=== PATIENT | female | born 1980 | race Caucasian/White ===

== ENCOUNTER → 2016-08-15 | Outpatient (CLI) | payer OTHER ==
[~2016-08-15] MED LIST: CONRAY-43 43% 50ML VIAL (Q9960) As Ordered ONE; LIDOCAINE 1% MDV 20ML VIAL As Ordered ONE; TRIAMCINOLONE ACETONIDE SUSP 40 MG/ML VIAL (J3301) As Ordered ONE
--- NOTE | 2016-08-15 16:03 | REP ---
Right hip injection The procedure was performed under the direct supervision of Dr. Orozco. The benefits and risks including but not limited to pain infection and bleeding and anaphylaxis were explained to the patient and informed consent was obtained. The right femoral neck was localized using fluoroscopic guidance. The skin was prepped and draped in a sterile fashion. 1% lidocaine was used as a local anesthetic. Using fluoroscopic guidance a 22-gauge spinal needle was inserted and advanced to the femoral neck. 0.5 ml of Conray 43 was injected to verify placement. 10 ml of a solution containing 9 ml of 1% Xylocaine and 1 ml of Kenalog 40 mg was injected. The needle was then removed. The patient tolerated the procedure well and there were no immediate complications. 2 seconds of fluoro time was utilized for this procedure. Reviewed by ALEAH Hernandez 08/15/2016 03:26 PSigned by Ajit Orozco MD 08/15/2016 03:56 P
== END ==
LOC: M RADPRO 09:29
PROVIDERS: ATTEND Orthopaedic Surgery
DX: M25.859 Other specified joint disorders, unspecified hip (principal)
CPT/HCPCS: 20611; 77002; J3301; Q9960

== ENCOUNTER → 2016-09-12 | Outpatient (CLI) | payer OTHER ==
--- NOTE | 2016-09-12 20:09 | REP ---
Left hip injection The procedure was performed under the direct supervision of Dr. Nails. The benefits and risks including but not limited to pain infection and bleeding and anaphylaxis were explained to the patient and informed consent was obtained. The left femoral neck was localized using fluoroscopic guidance. The skin was prepped and draped in a sterile fashion. 1% lidocaine was used as a local anesthetic. Using fluoroscopic guidance a 22-gauge spinal needle was inserted and advanced to the femoral neck. 0.5 ml of Conray 43 was injected to verify placement. 10 ml of a solution containing 9 ml of 1% Xylocaine and 1 ml of Kenalog 40 mg was injected. The needle was then removed. The patient tolerated the procedure well and there were no immediate complications. 2 seconds of fluoro time was utilized for this procedure. Reviewed by ALEAH Hernandez 09/12/2016 01:55 PSigned by Joshua Nails MD 09/12/2016 07:51 P
== END ==
LOC: M RADPRO 09:58
PROVIDERS: ATTEND Orthopaedic Surgery
DX: M25.552 Pain in left hip (principal)
CPT/HCPCS: 20611; 77002; J3301; Q9960

== ENCOUNTER 2020-04-01 15:31 | Inpatient (IN) | payer MEDICAID, OTHER, SELFPAY ==
[~2020-04-01] VITALS: Ht 182.9 cm; Wt 64.7 kg
[2020-04-01] MEDS ORDERED: DULO1CAP4 PO (17:27)
[2020-04-01] MEDS ORDERED: TRAM50TA2 PO (17:27)
[2020-04-01 17:59] LABS: HEMATOCRIT 39.9 % (36.0-47.0); MEAN CORPUSCULAR HEMOGLOBIN 31.2 pg (27.0-33.0); MEAN CORPUSCULAR HGB CONC 32.6 g/dl (32.0-36.5); MEAN CORPUSCULAR VOLUME 95.7 fl (80.0-96.0); PLATELET COUNT, AUTOMATED 198 10^3/uL (150-450); RED BLOOD COUNT 4.17 10^6/uL (4.00-5.40); WHITE BLOOD COUNT 7.3 10^3/uL (4.0-10.0)
[2020-04-01 18:30] LABS: AMPHETAMINES LEVEL URINE NEGATIVE (NEGATIVE); BARBITURATES URINE NEGATIVE (NEGATIVE); BENZODIAZEPINES URINE NEGATIVE (NEGATIVE); CANNABINOIDS URINE POSITIVE (NEGATIVE); COCAINE METABOLITE URINE NEGATIVE (NEGATIVE); METHADONE URINE NEGATIVE (NEGATIVE); OPIATES URINE NEGATIVE (NEGATIVE); PHENCYCLIDINE URINE NEGATIVE (NEGATIVE)
[2020-04-01 18:31] LABS: HCG, SERUM QUALITATIVE NEGATIVE (NEGATIVE)
[2020-04-01 18:41] LABS: BLOOD UREA NITROGEN 14 MG/DL (7-18); GLUCOSE, FASTING 83 MG/DL (70-100)
[2020-04-01 18:42] LABS: ACETAMINOPHEN LEVEL < 2.0 UG/ML (10.0-30.0); ALBUMIN 4.2 GM/DL (3.2-5.2); ALT/SGPT 12 U/L (12-78); BILIRUBIN,DIRECT 0.3 MG/DL (0.0-0.2); BILIRUBIN,TOTAL 1.4 MG/DL (0.2-1.0); CALCIUM LEVEL 9.1 MG/DL (8.5-10.1); CARBON DIOXIDE LEVEL 28 MEQ/L (21-32); CHLORIDE LEVEL 106 MEQ/L (98-107); ETHYL ALCOHOL (ETHANOL) < 0.003 % (0.000-0.010); GLOMERULAR FILTRATION RATE > 60.0 (>60); POTASSIUM SERUM 3.5 MEQ/L (3.5-5.1); SALICYLATE LEVEL < 1.7 MG/DL (5.0-30.0); SODIUM LEVEL 141 MEQ/L (136-145); THYROID STIMULATING HORMONE 0.842 uIU/ML (0.358-3.740); TOTAL PROTEIN 7.5 GM/DL (6.4-8.2)
[2020-04-01 18:53] LABS: RSV AMPLIFICATION NEGATIVE (NEGATIVE)
[2020-04-01] MEDS ORDERED: MOM 30ML SUSPENSION UDC PO PRN (20:15)
[2020-04-01] MEDS ORDERED: ACETAMINOPHEN TAB 650MG DOSE (2X325MG) PO PRN (20:15)
[2020-04-01] MEDS ORDERED: OLANZapine ORAL DISINTEGRATING TAB 5MG PO PRN (20:15)
[2020-04-01] MEDS ORDERED: MAALOX 30 ML SUSP *UDC PO PRN (20:15)
[2020-04-01] MEDS ORDERED: SERTRALINE HCL 50 MG TAB PO SCH (21:00)
[2020-04-01 23:19] VITALS: BP 101/69
[2020-04-02] MEDS: traZODone 50 MG TAB PO PRN ×2 (00:13→21:45)
[2020-04-02] MEDS ORDERED: INFLUENZA QUADRIVALENT PF VACCINE 0.5ML SYRINGE IM ONE (09:00)
[2020-04-02] MEDS: NICOTINE 21MG/24HR 1 EA TRANSDERMAL TD SCH (09:00)
--- NOTE | 2020-04-02 10:39 | HPE ---
HISTORY AND PHYSICAL DATE OF ADMISSION: 04/01/2020 HISTORY OF PRESENT ILLNESS: Brionna is seen in [facility]. This is her hospitalist generated history and physical. MEDICAL HISTORY: Essentially benign. She has no ongoing chronic medical problems where she needs a primary physician. PAST SURGICAL HISTORY: She has had orthopedic surgery, unspecified hip, knee, and shoulder. She had what sounds like a cyst or maybe a hematoma around her spleen that required surgical intervention in [place] but she did not undergo splenectomy. FAMILY HISTORY: Both parents alive and well. SOCIAL HISTORY: She vapes. Social alcohol use. ALLERGIES: None known. REVIEW OF SYSTEMS: No chest pain, palpitations, dizziness, change in bowel or urinary habits. PHYSICAL EXAMINATION: HEENT unremarkable. Thyroid not palpable. Lungs: Clear. Heart: Regular rate and rhythm without murmur. Abdomen: Soft, nontender. No masses. Extremities: No peripheral edema. Normal strength in the arms and legs. Neurologic: Coordination normal. Gait normal. IMPRESSION: The patient is medically stable and has no medical conditions which would require ongoing hospitalist involvement. Call if there is any change in her clinical status requiring hospitalist assessment.
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
[2020-04-02 18:00] VITALS: BP 128/74
[2020-04-02] MEDS: ARIPiprazole 2 MG TAB PO SCH (21:45)
[2020-04-02] MEDS: SERTRALINE HCL 25 MG TABLET PO SCH (21:45)
[2020-04-02] MEDS: DIVALPROEX 250 MG TAB PO SCH (21:45)
[2020-04-03 05:38] VITALS: BP 107/59
[2020-04-03] MEDS: NICOTINE 21MG/24HR 1 EA TRANSDERMAL TD SCH (09:00)
[2020-04-03] MEDS: DIVALPROEX 250 MG TAB PO SCH ×2 (09:33→20:36)
--- NOTE | 2020-04-03 15:40 | MHIPNPDOC ---
[facility] Progress Note Progress Note DATE OF SERVICE: 04/03/20 HISTORY: The patient was admitted because she felt she was spiraling down. She reports that she has engaged in self destructive behaviors out of poor impulse c ontrol. Yesterday this gag writer thought she could have bipolar disorder, lowered her Zoloft to 25 mgs and started her on Abilify and Depakote to start today. She feels better today, she says. VITAL SIGNS: See below. NEW TEST RESULTS: See below CURRENT MEDICATIONS: See below. MENTAL STATUS EXAMINATION: General Appearance: good attire and hygiene , hospital scubs/clothing Build: thin Demeanor: calm, cooperative Eye Contact: average Activity: calm Behavior: cooperative Speech: normal in r/t/v, clear and spontaneous Mood: "a little bit sad but overall pretty good compared to how it has been" Affect: full, appropriate, congruent Thought Process: logical/linear Thought Content (Delusions): none reported Thought Content (Other): anxious and guilty thoughts about being here instead of being with her children, ideas of reference. Denies SI Thought Content (Aggressive): none reported Perception (Hallucinations): none reported Perception (Other): none reported Cognition (Impairment of): none reported Cognition(Intelligence Est.): average Oriented: Awake, Alert, Oriented times three Insight: fair Judgment: Poor Psychosis: Denies Diagnoses 1. unspecified mood disorder, r/o bipolar disorder mixed 2. ELMER 3. Polysubstance abuse ASSESSMENT: patient feels improved with Abily, Depakote and a small dose of Zoloft. she worries about being able to get these medications because she doesn't have insurance. I have recommended her to elkin to her D/C principal planner tomorrow because some of these medications at a lower walker at the pharmacy or aybe using [facility]. she is improving. MANAGEMENT PLAN: continue with current treatment plan TIME SPENT: 20 minutes. Vital Signs Vital Signs Date Time Temp Pulse Resp B/P (MAP) Pulse Ox O2 Delivery O2 Flow Rate FiO2 04/03/20 05:38 97.6 68 16 107/59 (75) 97 Room Air Current Medications Current Medications Medications (Trade) Dose Ordered Sig/Jia Route PRN Reason Start Time Stop Time Status Last Admin Dose Admin Acetaminophen (Tylenol Tab) 650 mg Q6HP PRN PO HEADACHE or DISCOMFORT 04/01/20 20:15 Al Hydrox/Mg Hydrox/Simethicone (Mylanta) 30 ml Q4HP PRN PO HEARTBURN/INDIGESTION 04/01/20 20:15 Aripiprazole (AbiLIFY) 2 mg QHS PO 04/02/20 21:00 04/02/20 21:45 Divalproex Sodium (Depakote) 250 mg BID PO 04/02/20 21:00 04/03/20 09:33 Home Med (Med Rec Complete!) ASDIRECTED XX 04/01/20 17:45 04/01/20 17:41 DC Magnesium Hydroxide (Milk Of Magnesia) 30 ml DAILYPRN PRN PO CONSTIPATION 04/01/20 20:15 Nicotine (Nicoderm Cq 21mg) 1 patch DAILY TD 04/02/20 09:00 Olanzapine (ZyPREXA ZYDIS) 5 mg Q6HP PRN PO AGITATION 04/01/20 20:15 Sertraline HCl (Zoloft) 25 mg QHS PO 04/02/20 21:00 04/02/20 21:45 Sertraline HCl (Zoloft) 50 mg QHS PO 04/01/20 21:00 04/02/20 15:20 DC 04/02/20 00:10 Trazodone HCl (Desyrel) 50 mg QHSP PRN PO INSOMNIA 04/01/20 20:15 04/02/20 21:45 Allergies Coded Allergies: No Known Allergies (Unverified , 04/01/20) ROBI BARTON MD Apr 03, 2020 15:34
[2020-04-03 17:39] VITALS: BP 129/62
[2020-04-03] MEDS: SERTRALINE HCL 25 MG TABLET PO SCH (20:36)
[2020-04-03] MEDS: ARIPiprazole 2 MG TAB PO SCH (20:37)
[2020-04-04 06:15] VITALS: BP 94/53
[2020-04-04] MEDS: NICOTINE 21MG/24HR 1 EA TRANSDERMAL TD SCH (09:00)
[2020-04-04] MEDS: DIVALPROEX 250 MG TAB PO SCH ×2 (09:37→20:22)
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
[2020-04-04 17:53] VITALS: BP 114/70
[2020-04-04] MEDS: ARIPiprazole 2 MG TAB PO SCH (20:21)
[2020-04-04] MEDS: SERTRALINE HCL 25 MG TABLET PO SCH (20:21)
[2020-04-04] MEDS: traZODone 50 MG TAB PO PRN (22:42)
[2020-04-05 06:03] VITALS: BP 102/53
[2020-04-05] MEDS: NICOTINE 21MG/24HR 1 EA TRANSDERMAL TD SCH (09:00)
[2020-04-05] MEDS: DIVALPROEX 250 MG TAB PO SCH ×2 (09:42→21:32)
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
[2020-04-05] MEDS ORDERED: ABIL1TAB13 PO (13:30)
[2020-04-05] MEDS ORDERED: DEPA250T32 PO (13:30)
[2020-04-05] MEDS ORDERED: TRAZ-252 PO (13:30)
[2020-04-05] MEDS ORDERED: SERT25TA21 PO (13:30)
[2020-04-05 15:43] VITALS: BP 119/77
[2020-04-05] MEDS: SERTRALINE HCL 25 MG TABLET PO SCH (21:31)
[2020-04-05] MEDS: ARIPiprazole 2 MG TAB PO SCH (21:31)
[2020-04-05] MEDS: traZODone 50 MG TAB PO PRN (21:32)
[2020-04-06 06:40] VITALS: BP 111/61
[2020-04-06] MEDS: NICOTINE 21MG/24HR 1 EA TRANSDERMAL TD SCH (09:00)
[2020-04-06] MEDS: DIVALPROEX 250 MG TAB PO SCH (09:32)
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
== END 2020-04-06 10:40 | disposition home or self-care (01) | DRG 753 ==
LOC: M ED 15:31 → M ED INP 20:02 → M PSY 23:18
PROVIDERS: ADMIT Psychiatry & Neurology Psychiatry; ATTEND Psychiatry & Neurology Psychiatry
DX: F31.81 Bipolar II disorder (principal); F41.1 Generalized anxiety disorder; Z79.899 Other long term (current) drug therapy